=== PATIENT | male | born 1990 | race Caucasian/White ===

== ENCOUNTER 2016-06-24 20:57 | Emergency (ER) | payer OTHER ==
[2016-06-24 21:03] VITALS: BP 136/69; PULSE 93; TEMP 97.7; BMI 34.2
--- NOTE | 2016-06-24 21:45 | DIRPT ---
CLINICAL DATA: Right third digit laceration. Cut middle finger trying to catch a "tomahawk". EXAM: RIGHT FINGER(S) - 2+ VIEW COMPARISON: None. FINDINGS: Soft tissue defect consistent with laceration noted about the volar aspect of the proximal phalanx. No radiopaque foreign body. No associated fracture. The alignment and joint spaces are maintained. IMPRESSION: Soft tissue laceration about the volar third proximal phalanx. No radiopaque foreign body or acute osseous abnormality. Electronically Signed By: Mala Lopez M.D. On: 06/24/2016 21:42
[2016-06-24] MEDS ORDERED: LIDOCAINE 2% 5 ML (PRESERVATIVE FREE) VIAL INF ONE (21:49)
--- NOTE | 2016-06-24 21:59 | EDPRACDOC ---
- General Information Information Source: Patient Home Medications: Home Medications Ketoprofen 75 mg PO TID #30 capsule 06/04/16 Multivitamin [One-A-Day Essential] 1 tab PO DAILY 06/04/16 Allergies/Adverse Reactions: Allergies Allergy/AdvReac Type Severity Reaction Status Date / Time succinylcholine Allergy See Verified 06/24/16 21:01 Comments - History of Present Illness Onset: tonight HPI: PT PRESENTS TODAY WITH LACERATION TO BASE OF RIGHT MIDDLE FINGER [employer]. CUT ON [place]. NO OTHER INJURY REPORTED. - Tetanus Status Last Tetanus: Yes - Pain Pain Severity: Mild Bleeding: Reports: Controlled Associated Signs & Symptoms: Reports: None ED Past Medical History - History Reviewed Yes Nurses notes reviewed and agree except as marked - Patient Medical History Psychological History: Denies: Depression - Social Medical History Smoking Status: Never smoker EDM Review of Systems - Review of Systems ROS Negative Except as Marked: Yes All systems reviewed and were negative except as marked Constitutional: No Symptoms Reported Neurological: No Symptoms Reported Musculoskeletal: Hand Integumentary: Wound - Physical Exam Constitutional: Alert (Awake), No apparent distress Oriented to: Time, Person, Place Last recorded Vital Signs: Last Vital Signs Temp 97.7 F 06/24/16 21:01 Pulse 93 06/24/16 21:01 Resp 18 06/24/16 21:01 BP 136/69 06/24/16 21:01 Pulse Ox 100 06/24/16 21:01 Oxygen Pulse Oxygen Saturation 100 O2 Device Room Air Oxygen Flow Rate Fraction of Inspired Oxygen ( FIO2) - HEENT Head: Normal Eye Exam: Normal Neck: Normal, Denies Pain, Midline - Respiratory/Cardiovascular Respiratory: Normal - CTA Cardiovascular: Normal - GI Palpation: Normal Tenderness: Non tender - Musculoskeletal Back: Normal Extremities: Other (NOTED LINEAR LACERATION TO BASE OF RIGHT MIDDLE FINGER, DEEP TO DERMIS, MILDLY BLEEDING; FULL ROM; NO INVOLVEMENT OF LIGAMENTS; WOUND IS CLEAN; ABOUT 2 CM TOTAL LENGTH) - Integumentary Skin: Normal Lymphatics: Normal - Neurologic Cerebellar: Normal Mood Description: Normal Thought: Coherent Perception: Normal ED Procedures - Suture/Laceration Suture #1 Right Proximal Finger Wound Length (cm): 2.0 Wound's Depth, Shape: linear Wound Explored: clean Betadine Prep?: Yes Anesthesia: 1% Lidocaine Volume Anesthetic (ccs): 4 Wound Margins: Revised Wound Repaired With: Sutures Suture Size/Type: 4:0, nylon Number of Sutures: 8 Layer Closure?: No - Departure Disposition: Home Condition: Good Final Diagnosis: [id number] Instructions: RICE: Routine Care for Injuries Education/Counseling Given To: Patient Education/Counseling Given Regarding: Diagnosis, Treatment, Follow Up Referrals: Lashell Landry MD [Primary Care Provider] - One Week Additional Instructions: IBUPROFEN NEEDED FOR PAIN. KEEP WOUND WRAPPED AND CLEAN. HAVE STITCHES REMOVED IN 7-10 DAYS.
== END 2016-06-24 22:20 | disposition home or self-care (01) ==
LOC: EDMC 20:57
DX: S61.212A Laceration without foreign body of right middle finger without damage to nail, initial encounter (principal); W45.8XXA Other foreign body or object entering through skin, initial encounter; Y93.9 Activity, unspecified
CPT/HCPCS: 12001; 73140; 99282; J2001